=== PATIENT | female | born 1975 | race Caucasian/White ===

== ENCOUNTER 2022-11-09 14:55 | Outpatient (CLI) | payer MEDICAID, SELFPAY ==
--- NOTE | 2022-11-09 15:12 | MR_ITS ---
WS: [email or web address] MRI LUMBAR SPINE NONCONTRAST HISTORY: BACK PAIN, progressive pain. COMPARISON: 04/15/2013 TECHNIQUE: Sagittal and axial multisequence imaging is submitted. Normal lumbar alignment with no compression fractures or marrow edema. There is slight retrolisthesis of L5 by 2 mm. Similar to the prior study. Mild disc space narrowing and desiccation at L4-5 and L5-S1. Reactive fatty marrow changes along the adjacent endplates of L5 and S1. Conus terminates normally at L1-2 disc level. L1-L2: Normal. L2-L3: Mild facet disease. No stenosis or herniations. L3-L4: Mild annular disc bulge with mild ligamentum flavum hypertrophy. There is mild encroachment of the facets towards the thecal sac. No significant stenosis. L4-L5: Mild annular disc bulge with mild ligamentum flavum and facet arthritis. No high-grade stenosi s. No disc protrusion. L5-S1: Mild annular disc bulge with a moderate central to RIGHT paracentral disc protrusion. Disc pro trusion is slightly contacting but not displacing the nerve roots. Slightly greater encroachment upon the RIGHT S1 nerve root. Very mild bilateral foraminal stenosis. RIGHT paracentral disc protrusion w as also described in 2013 and has actually decreased slightly. Paravertebral soft tissues are normal. MR/MR lumbar spine wo con* [id number] IMPRESSION: 1. Moderate central to RIGHT paracentral disc protrusion at L5-S1. Mild contac t on the nerve roots, RIGHT S1 nerve root slightly greater than the LEFT. This disc protrusion was present on the study from 2012 and is slightly decreased. 2. No high-grade central or foraminal stenosis. 3. Moderate degenerative disc disease at L5-S1. 4. Mild bilateral foraminal stenosis at L5-S1.
== END 2022-11-09 14:56 | disposition home or self-care (01) ==
LOC: RAD 15:03
PROVIDERS: Visit Provider Neurological Surgery
DX: M51.27 Other intervertebral disc displacement, lumbosacral region (principal); M51.37 Other intervertebral disc degeneration, lumbosacral region; M48.07 Spinal stenosis, lumbosacral region
CPT/HCPCS: 72148

== ENCOUNTER 2022-11-26 06:00 | Outpatient (RCR) | payer MEDICAID, SELFPAY | END 2022-12-26 23:59 | disposition home or self-care (01) | LOC: APT 06:00 | PROVIDERS: Visit Provider Physician Assistant | DX: M54.2 Cervicalgia (principal); M54.9 Dorsalgia, unspecified; G89.29 Other chronic pain | CPT/HCPCS: 97110; 97163 ==

== ENCOUNTER → 2022-11-27 14:41 | Outpatient (BNVA) | payer MEDICAID, SELFPAY | PROVIDERS: Referring Provider Family Medicine; Visit Provider Physician Assistant | DX: M47.894 Other spondylosis, thoracic region (principal); M47.892 Other spondylosis, cervical region; M48.061 Spinal stenosis, lumbar region without neurogenic claudication | CPT/HCPCS: 72050; 72070; 72110 ==

== ENCOUNTER 2023-01-25 14:06 | Outpatient (CLI) | payer MEDICAID, SELFPAY ==
--- NOTE | 2023-01-25 14:15 | MM_ITS ---
WS: [email or web address] BILATERAL 3D TOMOSYNTHESIS DIGITAL SCREENING MAMMOGRAPHY WITH CAD CLINICAL INFORMATION: SCREENING HISTORY: Screening mammogram. No current complaints. COMPARISON: 2020 TECHNIQUE: Bilateral CC and MLO views. FINDINGS: The breasts are composed of heterogeneous fibroglandular density tissue, which can limit the detectio n of small underlying mass lesions. No suspicious mass, asymmetry, calcifications, or architectural d istortion. No evidence of malignancy. A few additional punctate calcifications. MM/[place] [id number] IMPRESSION: BI-RADS: 2-Benign FOLLOW UP: 1 Year Follow-up Recommend return to annual screening mammography.
== END 2023-01-25 14:07 | disposition home or self-care (01) ==
LOC: RAD 14:07
PROVIDERS: PCP Family Medicine; Visit Provider Family Medicine
DX: Z12.31 Encounter for screening mammogram for malignant neoplasm of breast (principal)
CPT/HCPCS: 77063; 77067

== ENCOUNTER 2023-02-18 14:36 | Outpatient (CLI) | payer MEDICAID, SELFPAY ==
--- NOTE | 2023-02-18 15:15 | MR_ITS ---
WS: [email or web address] MRI CERVICAL SPINE NONCONTRAST HISTORY: neck pain COMPARISON: Radiographs 11/27/2022 Technique: Multiplanar, multisequence noncontrast imaging of the cervical spine. Normal cervical alignment with no compression fracture or significant disc space narrowing. Signal within the cervical cord is normal. Visualized posterior fossa is unremarkable. Craniocervical junction, C1 and C2 relationship, odontoid process and soft tissues are normal. C2-C3: Normal. C3-C4: Normal. C4-C5: Normal. C5-C6: Mild disc bulging with a very tiny central disc protrusion. No stenosis. C6-C7: Mild annular disc bulging with a very shallow central disc protrusion. Bilateral facet joint a rthritis. Small disc osteophyte complex in the LEFT foramen causing moderate stenosis. Small osteophy te on the RIGHT with only minimal encroachment. C7-T1: Minimal hypertrophic osteophyte formation. No stenosis. Paraspinal soft tissue are normal. MR/MR cervical spin wo con* [id number] IMPRESSION: 1. No high-grade central or foraminal stenosis. 2. Moderate LEFT foraminal stenosis at C6-7 due to a disc osteophyte complex. 3. Very minimal RIGHT foraminal stenosis at C6-7.
== END 2023-02-18 14:37 | disposition home or self-care (01) ==
PROVIDERS: PCP Family Medicine; Visit Provider Orthopaedic Surgery
DX: M50.323 Other cervical disc degeneration at C6-C7 level (principal); M79.671 Pain in right foot; M25.78 Osteophyte, vertebrae; M79.672 Pain in left foot; M72.2 Plantar fascial fibromatosis
CPT/HCPCS: 72141; 73630

== ENCOUNTER 2023-04-17 14:53 | Outpatient (CLI) | payer MEDICAID, SELFPAY | END 2023-04-17 14:54 | disposition home or self-care (01) | LOC: SPT 14:53 | PROVIDERS: PCP Family Medicine; Visit Provider Podiatrist Foot & Ankle Surgery | DX: Z46.89 Encounter for fitting and adjustment of other specified devices (principal); M72.2 Plantar fascial fibromatosis | CPT/HCPCS: 97760; L4397 ==

== ENCOUNTER 2023-07-10 13:22 | Outpatient (CLI) | payer OTHER, SELFPAY ==
--- NOTE | 2023-07-10 13:31 | XR_ITS ---
WS: [email or web address] Exam: XR wrist RT 2V [id number] Date/Time of Exam: 07/10/2023 1:36 PM Reason For Exam: WEAK ANALYTICAL TECHNICIAN There are no fractures, soft tissue swelling, or unusual calcifications. The wrist shows normal bony alignment. There is no irregularity of the bony architecture. IMPRESSION: Negative RIGHT wrist.
== END 2023-07-10 13:23 | disposition home or self-care (01) ==
LOC: RAD 13:28
PROVIDERS: PCP Family Medicine; Visit Provider Dermatology
DX: Z02.71 Encounter for disability determination (principal); R53.1 Weakness
CPT/HCPCS: 73100

== ENCOUNTER → 2023-10-01 11:27 | Outpatient (BNVA) | payer MEDICAID, SELFPAY | PROVIDERS: PCP Family Medicine; Visit Provider Anesthesiology Pain Medicine | DX: M67.911 Unspecified disorder of synovium and tendon, right shoulder (principal) | CPT/HCPCS: 73030 ==

== ENCOUNTER → 2023-10-22 09:26 | Outpatient (BNVA) | payer MEDICAID, SELFPAY | PROVIDERS: PCP Family Medicine; Referring Provider Family Medicine; Visit Provider Psychiatry & Neurology Neurology | DX: R93.89 Abnormal findings on diagnostic imaging of other specified body structures (principal); R51.9 Headache, unspecified | CPT/HCPCS: 36415; 82542; 82607; 82746; 83735; 83921; 86592; 86780 ==

== ENCOUNTER 2023-11-22 11:25 | Outpatient (CLI) | payer MEDICAID, SELFPAY ==
--- NOTE | 2023-11-22 11:30 | MR_ITS ---
WS: [email or web address] MRA CAROTID WITHOUT AND WITH GADOLINIUM ENHANCEMENT TECHNIQUE: Axial 2-D TOF and gadolinium bolus images obtained with axial images and axial, sagittal, and coronal 2-D reformatted images. CLINICAL INFORMATION: R41.3 - Other amnesia COMPARISON: None. FINDINGS: RIGHT: RIGHT common carotid artery is patent. No significant RIGHT ICA stenosis. RIGHT ICA is patent to the skull base. LEFT: LEFT common carotid artery is patent. No significant LEFT ICA stenosis. LEFT ICA is patent to t he skull base. Codominant and patent vertebral arteries bilaterally. Normal branching aortic arch anatomy. Proximal subclavian arteries are patent. IMPRESSION: 1. No significant cervical ICA stenosis bilaterally. Both ICAs are patent to the skull base. 2. Codominant and patent vertebral arteries bilaterally. 3. No other acute findings.
--- NOTE | 2023-11-22 12:15 | MR_ITS ---
WS: [email or web address] MRA HEAD TECHNIQUE: Axial 3-D TOF images obtained with axial images and axial, sagittal, and coronal 2-D refor matted images. CLINICAL INFORMATION: R41.3 - Other amnesia COMPARISON: None. FINDINGS: Distal vertebral arteries are patent. Basilar artery is patent. Normal vascularity to the COMPLIANCE AIDE territo ry bilaterally. Both ICAs are patent at the skull base. Normal vascularity to the ALANIS and MCA territories bilaterally . No evidence of high-grade proximal stenosis or aneurysm. IMPRESSION: 1. No evidence of high-grade proximal stenosis or aneurysm. 2. Unremarkable intracranial MRA.
== END 2023-11-22 11:26 | disposition home or self-care (01) ==
LOC: RAD 11:26
PROVIDERS: PCP Family Medicine; Visit Provider Psychiatry & Neurology Neurology
DX: R41.3 Other amnesia (principal); R93.89 Abnormal findings on diagnostic imaging of other specified body structures; R26.89 Other abnormalities of gait and mobility; G44.009 Cluster headache syndrome, unspecified, not intractable; R29.818 Other symptoms and signs involving the nervous system; R93.0 Abnormal findings on diagnostic imaging of skull and head, not elsewhere classified
CPT/HCPCS: 70544; 70548; A9577

== ENCOUNTER 2023-12-11 13:30 | Outpatient (CLI) | payer MEDICAID, SELFPAY ==
--- NOTE | 2023-12-11 13:45 | MR_ITS ---
WS: [email or web address] MRI RIGHT SHOULDER HISTORY: M25.511 - Pain in right shoulder COMPARISON: None available. TECHNIQUE: Multiplanar sequences of the shoulder joint are submitted. Mild AC joint arthritis. 5 mm osteophyte from the distal undersurface of the acromion with mild subac romial impingement. Small amount of fluid in the subacromial and subdeltoid bursa. No os acromion. Bi ceps tendon normal. There is marked thickening and increased T2 signal in the distal supraspinatus tendon. Consistent wit h tendinopathy. There is a additional increased signal in the supraspinatus tendon over the humeral h ead which is suspicious for very small articular surface tear. There is no retraction of the tendon. No muscle atrophy or edema. Subscapularis tendon is normal. No labral tear. Normal position of the hu meral head. MR/MR shoulder RT wo con* [id number] IMPRESSION: 1. Marked thickening and increased signal in the distal supraspinatus tendon f rom tendinopathy. 2. There is an additional more proximal area of increased T2 signal along the articular surface of the supraspinatus tendon suspicious for a very small tear. 3. No muscle atrophy or edema. 4. Mild subacromial impingement. 5. Mild AC joint arthritis.
== END 2023-12-11 13:31 | disposition home or self-care (01) ==
LOC: RAD 13:30
PROVIDERS: PCP Family Medicine; Visit Provider Anesthesiology Pain Medicine
DX: M25.511 Pain in right shoulder (principal); M67.90 Unspecified disorder of synovium and tendon, unspecified site; M25.711 Osteophyte, right shoulder
CPT/HCPCS: 73221

== ENCOUNTER → 2024-01-09 12:11 | Outpatient (BNVA) | payer MEDICAID, SELFPAY | PROVIDERS: PCP Family Medicine; Visit Provider Internal Medicine Rheumatology | DX: Z79.899 Other long term (current) drug therapy (principal); H04.129 Dry eye syndrome of unspecified lacrimal gland | CPT/HCPCS: 83615; 85651; 86140; 86235; 86431; 86812 ==

== ENCOUNTER → 2024-02-05 15:04 | Outpatient (CLI) | payer MEDICAID, SELFPAY ==
--- NOTE | 2024-02-05 15:15 | US_ITS ---
WS: [email or web address] Right axillary ultrasound, 02/05/2024 Clinical Data: R59.9 - Enlarged lymph nodes, unspecified Comparison: None. Findings: The right axilla was imaged in multiple projections. Only normal subcutaneous tissue and muscle tissu e could be seen. There are no cysts or masses. No abnormal lymph nodes could be seen. US/US soft tissue/extremity [id number] Impression: Negative right axillary ultrasound.
== END | disposition home or self-care (01) ==
LOC: RAD 15:03
PROVIDERS: PCP Family Medicine; Visit Provider Internal Medicine Rheumatology
DX: R59.9 Enlarged lymph nodes, unspecified (principal)
CPT/HCPCS: 76882

== ENCOUNTER → 2024-03-05 13:20 | Outpatient (BNVA) | payer MEDICAID, SELFPAY | PROVIDERS: PCP Family Medicine; Visit Provider Orthopaedic Surgery | DX: M48.061 Spinal stenosis, lumbar region without neurogenic claudication (principal); M47.22 Other spondylosis with radiculopathy, cervical region | CPT/HCPCS: 72050; 72110 ==

== ENCOUNTER → 2024-05-05 16:36 | Outpatient (BNVA) | payer MEDICAID, SELFPAY | PROVIDERS: PCP Family Medicine; Visit Provider Psychiatry & Neurology Neurology | DX: R51.9 Headache, unspecified (principal); M25.511 Pain in right shoulder; M54.6 Pain in thoracic spine | CPT/HCPCS: 36415; 82542; 85651; 86038; 86140; 86431 ==

== ENCOUNTER → 2024-06-03 13:25 | Outpatient (BNVA) | payer MEDICAID, SELFPAY | PROVIDERS: PCP Family Medicine; Visit Provider Specialist | DX: G56.03 Carpal tunnel syndrome, bilateral upper limbs (principal); M77.8 Other enthesopathies, not elsewhere classified | CPT/HCPCS: 73130 ==

== ENCOUNTER → 2024-06-09 15:29 | Outpatient (BNVA) | payer MEDICAID, SELFPAY | PROVIDERS: PCP Family Medicine; Visit Provider Orthopaedic Surgery | DX: M47.22 Other spondylosis with radiculopathy, cervical region (principal); M54.2 Cervicalgia | CPT/HCPCS: 72050 ==

== ENCOUNTER → 2024-07-16 15:02 | Outpatient (BNVA) | payer MEDICAID, SELFPAY | PROVIDERS: PCP Family Medicine; Visit Provider Orthopaedic Surgery | DX: M54.2 Cervicalgia (principal); M47.22 Other spondylosis with radiculopathy, cervical region | CPT/HCPCS: 72050 ==

== ENCOUNTER 2024-07-28 11:16 | Outpatient (CLI) | payer MEDICAID, SELFPAY ==
--- NOTE | 2024-07-28 11:00 | MR_ITS ---
WS: [email or web address] MRI CERVICAL SPINE NONCONTRAST TECHNIQUE: Sagittal T1, T2 and STIR imaging. Axial T2, gradient, and fiesta imaging. CLINICAL INFORMATION: neck pain COMPARISON: MRI 02/18/2023 FINDINGS: Straightening of the normal cervical lordosis. Cord signal is normal. Mild disc bulging worse at C6-7 . C2-C3: Mild facet arthropathy. Spinal canal and foramen are patent. C3-C4: Mild facet arthropathy. Mild RIGHT foraminal narrowing. C4-C5: Minimal disc osteophyte ridging. Mild facet arthropathy. Mild RIGHT and severe LEFT foraminal narrowing. C5-C6: Disc osteophyte ridging. Mild facet arthropathy. Spinal canal and foramen are patent. C6-C7: Disc osteophyte complex with moderate LEFT bony foraminal narrowing. This is similar to previo us. Mild RIGHT foraminal narrowing. Mild facet arthropathy. Spinal canal is patent. C7-T1: Spinal canal and foramen are patent. Visualized brain stem structures: Normal. Prevertebral soft tissues: Normal. MR/MR cervical spin wo con* [id number] IMPRESSION: 1. Disc osteophyte complex with moderate LEFT bony foraminal narrowing C6-7 si milar to previous 2. Mild RIGHT C6-7 bony foraminal narrowing. 3. Cord signal is normal.
== END 2024-07-28 11:17 | disposition home or self-care (01) ==
LOC: RAD 11:17
PROVIDERS: PCP Family Medicine; Visit Provider Orthopaedic Surgery
DX: M99.61 Osseous and subluxation stenosis of intervertebral foramina of cervical region (principal); M25.78 Osteophyte, vertebrae
CPT/HCPCS: 72141

== ENCOUNTER 2024-08-11 16:22 | Outpatient (CLI) | payer MEDICAID, SELFPAY ==
--- NOTE | 2024-08-11 16:30 | XR_ITS ---
WS: [email or web address] XR elbow LT min 3V* [id number] REASON FOR EXAM: elbow pain FINDINGS: No joint effusion. No acute fracture identified. The joint spaces of the elbow are intact and well preserved. XR/XR elbow LT min 3V* [id number] IMPRESSION: No significant abnormality.
== END 2024-08-11 16:23 | disposition home or self-care (01) ==
LOC: RAD 16:26
PROVIDERS: PCP Family Medicine; Visit Provider Nurse Practitioner
DX: M25.522 Pain in left elbow (principal)
CPT/HCPCS: 73080

== ENCOUNTER → 2024-08-17 16:29 | Outpatient (BNVA) | payer MEDICAID, SELFPAY | PROVIDERS: PCP Family Medicine; Visit Provider Anesthesiology Pain Medicine | DX: M47.894 Other spondylosis, thoracic region (principal) | CPT/HCPCS: 72072 ==

== ENCOUNTER → 2024-08-25 16:05 | Outpatient (BNVA) | payer MEDICAID, SELFPAY | PROVIDERS: PCP Family Medicine; Visit Provider Psychiatry & Neurology Neurology | DX: R93.0 Abnormal findings on diagnostic imaging of skull and head, not elsewhere classified (principal); R41.3 Other amnesia; G93.40 Encephalopathy, unspecified; R51.9 Headache, unspecified; R29.818 Other symptoms and signs involving the nervous system; R41.0 Disorientation, unspecified | CPT/HCPCS: 36415; 83520 ==

== ENCOUNTER 2024-09-01 13:50 | Outpatient (CLI) | payer MEDICAID, SELFPAY ==
--- NOTE | 2024-09-01 13:45 | MR_ITS ---
WS: [email or web address] MRI HEAD WITH CONTRAST TECHNIQUE: Sagittal T1, T2 axial, T2 axial FLAIR, axial susceptibility weighted imaging, axial diffusion weighted images, and coronal T2 images were obtained. Pre and post-T1 axial and post T1 coronal images. ADC and FSPGR images. CLINICAL INFORMATION: R93.0 - Abnormal findings on diagnostic imaging of skull ... COMPARISON: MRI 07/24/2023 FINDINGS: Mild patchy supratentorial white matter changes mainly in the frontal and parietal lobes near the vertex with a few foci in the subcortical white matter unchanged from the prior outside MRI. Findings are nonspecific in a patient this age but can be seen with small vessel changes and migraine headaches. No significant progression. Normal posterior fossa. Normal vascular flow voids at the skull base. No extra- axial fluid collections. No evidence of mass or mass effect. Paranasal sinuses and mastoid air cells are well aerated. Normal posterior nasopharynx. No restricted diffusion to suggest acute ischemia. No hemosiderin on suscep tibility-weighted images. Normal optic chiasm and pituitary infundibulum. Temporal lobes and hippocampal formations are normal in appearance. No abnormal gadolinium enhancement. Normal visualized dural venous sinuses. No other suspicious findings. MR/MR head wo/w con [id number] IMPRESSION: 1. Stable mild patchy supratentorial white matter changes nonspecific in a pat ient of this age but can be seen with migraine headaches and small vessel chua es. 2. No other suspicious intracranial signal abnormalities. 3. No abnormal gadolinium enhancement. 4. No other acute findings.
[2024-09-01] MEDS: gadobenate dimeglumine 20 mL vial 17 ML IV (14:30)
== END 2024-09-01 13:51 | disposition home or self-care (01) ==
LOC: RAD 13:50
PROVIDERS: PCP Family Medicine; Visit Provider Psychiatry & Neurology Neurology
DX: R93.0 Abnormal findings on diagnostic imaging of skull and head, not elsewhere classified (principal)
CPT/HCPCS: 70553

== ENCOUNTER 2024-09-29 20:00 | Outpatient (CLI) | payer MEDICAID, SELFPAY | END 2024-09-29 20:01 | disposition home or self-care (01) | LOC: SLEEP 09-30 03:06 | PROVIDERS: PCP Family Medicine; Visit Provider Psychiatry & Neurology Neurology | DX: G47.33 Obstructive sleep apnea (adult) (pediatric) (principal) | CPT/HCPCS: 95810 ==

== ENCOUNTER 2024-11-24 15:44 | Outpatient (CLI) | payer MEDICAID, SELFPAY ==
--- NOTE | 2024-11-24 16:00 | CT_ITS ---
WS: [email or web address] CT LEFT ELBOW, NONCONTRAST HISTORY: palpable mobile foreign body in left elbow Technique: All CT scans at [facility] use at least one of these dose optimization techniques: automated exposure control; mA and/or kV adjustment per patient size (includes targeted exams where dose is matched to clinical indication); or iterative reconstruction. DLP: 266.56 mGy.cm COMPARISON: Radiograph 08/11/2024 Normal alignment at the elbow joint. No acute fracture. Radial head is normal. Coronoid process and olecranon are normal. No supracondylar fracture. No significant joint effusion. Area of increased soft tissue thickening along the dorsal surface of the elbow. Soft tissue thickening measures 4.5 mm. There is a single, tiny, less than 2 mm, area of increased attenuation which is suspicious for tiny foreign body. This is best seen on image 20 of series 24 and image 51 of series 14. No additional similar densities. CT/CT elbow LT wo con* [id number] IMPRESSION: 1. Very tiny high density foreign body in the superficial soft tissues of the posterior elbow. This could be consistent with a small focus of glass. 2. Soft tissue thickening and edema along the dorsal elbow.
== END 2024-11-24 15:45 | disposition home or self-care (01) ==
LOC: RAD 15:48
PROVIDERS: PCP Family Medicine; Visit Provider Student in an Organized Health Care Education/Training Program
DX: S50.352A Superficial foreign body of left elbow, initial encounter (principal); M25.522 Pain in left elbow; M79.89 Other specified soft tissue disorders; X58.XXXA Exposure to other specified factors, initial encounter
CPT/HCPCS: 73200

== ENCOUNTER → 2024-12-01 13:44 | Outpatient (BNVA) | payer MEDICAID, SELFPAY | PROVIDERS: PCP Family Medicine; Visit Provider Podiatrist Foot & Ankle Surgery | DX: M79.671 Pain in right foot (principal); M79.672 Pain in left foot; M72.2 Plantar fascial fibromatosis | CPT/HCPCS: 73630 ==

== ENCOUNTER 2024-12-03 14:39 | Outpatient (CLI) | payer MEDICAID, SELFPAY ==
--- NOTE | 2024-12-03 15:15 | MR_ITS ---
WS: [email or web address] MRI LEFT ANKLE WITHOUT CONTRAST. COMPARISON: 12/01/2024 Multiplanar, multisequence imaging is performed without contrast. Normal signal in the plantar fascia. There is no edema at the calcaneal insertion site. No thickening of the plantar fascia or fibrosis identified. No osteophytosis. Achilles tendon is normal. No signal abnormality within the calcaneus. No widening of the syndesmosis. There is a small subchondral cyst in the distal fibula. No osteochondral lesions along the talar dome. Peroneus brevis and longus are normal. Flexor hallucis longus and the flexor digitorum longus and the posterior tibialis tendon are normal. Extensor tendons are normal. Anterior inferior and the talofibular ligaments are normal. Normal calcaneofibular ligament. Normal deltoid ligament. Sustentaculum tracey is enlarged but no coalition is identified. MR/MR ankle LT wo con* [id number] IMPRESSION: 1. No MRI evidence for plantar fasciitis. 2. Normal Achilles tendon. 3. Normal ATFL. 4. No osteochondral lesions or intra-articular bodies. 5. Subchondral cyst distal fibula.
== END 2024-12-03 14:40 | disposition home or self-care (01) ==
LOC: RAD 14:41
PROVIDERS: PCP Family Medicine; Visit Provider Podiatrist Foot & Ankle Surgery
DX: M79.671 Pain in right foot (principal); M79.672 Pain in left foot; M72.2 Plantar fascial fibromatosis; M85.672 Other cyst of bone, left ankle and foot; R93.6 Abnormal findings on diagnostic imaging of limbs
CPT/HCPCS: 73721

== ENCOUNTER 2025-01-21 05:55 | Day surgery (SDC) | payer MEDICAID, SELFPAY ==
[2025-01-21] VITALS (7 sets, daily range): BP systolic 106–166; BP diastolic 77–89; PULSE 68–88; RESP 16–18; TEMP 36.1–36.5; O2SAT 97–100; BMI 27.4
--- NOTE | 2025-01-21 06:35 | ANES.PREANE2 ---
Pre-Anesthetic Assessment Height/Weight: Height 1.65 m Weight 74.843 kg Temp Pulse Resp BP Pulse Ox O2 Del Method 97.0 F L 82 17 155/83 100 Room Air 01/21/25 06:11 01/21/25 06:11 01/21/25 06:11 01/21/25 06:11 01/21/25 06:11 01/21/25 06:13 Operation Date: 01/21/25 07:00 Proposed Procedures p elbow foreign body removal(Left) - Trell Neha, DO Familial anesthetic complications: None Was Beta Ariana taken within 24 hours: N/A Was Clonidine taken within 24 hours: N/A Last intake: Intake Last Liquid Date 01/20/25 Last Liquid Time 22:00 Last Solid Date 01/20/25 Last Solid Time 20:00 Social No alcohol and No tobacco Exam alert, oriented x 3, clear to auscultation bilaterally and regular rate & rhythm Airway Mallampati: Class I Dentition: full Pulmonary Sleep Apnea (central and obstructive) GI Gastroesophageal Reflux Disease Anesthetic Plan ASA status: 3 Anesthesia: MAC Other: Informed of possibillity of LMA/ETT if difficulty with breathing due to central sleep apnea/WILVER Risk of > 500 ml blood loss (7ml/kg in children): No Medications/Allergies Home Medications ?Medication ?Instructions ?Recorded ?Confirmed ?Last Taken ?Type alprazolam 1 mg tablet 1 mg PO DAILY 11/07/22 01/20/25 01/19/25 History methocarbamol 750 mg tablet 750 mg PO TID 11/07/22 01/20/25 01/19/25 History omeprazole 20 mg capsule,delayed 20 mg PO DAILY 11/07/22 01/20/25 01/19/25 History release Figure 8 Brace #1 ea 01/31/23 12/22/24 Unknown Rx Night Splint #1 ea 04/02/23 12/22/24 Unknown Rx TLSO Brace #1 ea 04/08/23 12/22/24 Unknown Rx diclofenac sodium 1 % topical gel 2 g topical BID 04/07/24 01/20/25 01/19/25 History (Arthritis Pain (diclofenac)) cholecalciferol (vitamin D3) 1,250 50,000 unit PO ONCE #30 tabs 07/02/24 01/20/25 01/05/25 Rx mcg (50,000 unit) tablet ibuprofen 600 mg tablet 600 mg PO TID PRN pain #60 tabs 08/11/24 01/20/25 Unknown Rx oxycodone-acetaminophen 10 mg-325 1 tab PO QID Severe pain of entire 08/25/24 01/20/25 01/19/25 History mg tablet spine Allergies Allergy/AdvReac Type Severity Reaction Status Date / Time bupropion Allergy Unknown Verified 01/21/25 06:06 codeine Allergy Unknown Verified 01/21/25 06:06 [facility] Anesthesia Medical History Confusion Psychiatric care Night sweats Polyarthralgia No pertinent past medical history Surgical History No pertinent past surgical history Family History Other Cancer Hyperlipidemia Hypertension Lupus Osteoporosis Stroke Social History Smoking and tobacco/nicotine status: never used tobacco/nicotine Alcohol intake: never
[2025-01-21] MEDS: ketorolac 30 mg/mL INJ IVP (06:38)
[2025-01-21] MEDS: sodium chloride 0.9% 1,000 ML 30 ML IV (06:38)
[2025-01-21] MEDS: scopolamine 1 mg PATCH 1 PATCH TRANSDERMA (06:39)
[2025-01-21] MEDS: acetaminophen 1,000 MG/100 ML PIGGYBACK 400 MG IV (06:41)
[2025-01-21 06:54] LABS: OR HCG Qualitative Urine Negative (Negative)
--- NOTE | 2025-01-21 06:56 | W.PM.OPSFHP ---
Same Day Surgery H&P Indication for Procedure/HPI DATE OF PROCEDURE: January 21, 2025 CHIEF COMPLAINT/INDICATIONFOR SURGICAL PROCEDURE: Left elbow foreign body PREOP DIAGNOSIS: Left elbow foreign body PLANNED PROCEDURE: Operation Date: 01/21/25 07:00 Proposed Procedures p elbow foreign body removal(Left) - rTell Solomon DO Medications/Allergies* Home Medications ?Medication ?Instructions ?Recorded ?Confirmed ?Type alprazolam 1 mg tablet 1 mg PO DAILY 11/07/22 01/20/25 History methocarbamol 750 mg tablet 750 mg PO TID 11/07/22 01/20/25 History omeprazole 20 mg capsule,delayed 20 mg PO DAILY 11/07/22 01/20/25 History release diclofenac sodium 1 % topical gel 2 g topical BID 04/07/24 01/20/25 History (Arthritis Pain (diclofenac)) oxycodone-acetaminophen 10 mg-325 1 tab PO QID Severe pain of entire 08/25/24 01/20/25 History mg tablet spine Allergies/Adverse Reactions Allergy/AdvReac Type Severity Reaction Status Date / Time bupropion Allergy Unknown Verified 01/21/25 06:06 codeine Allergy Unknown Verified 01/21/25 06:06 Current Medications: Generic Name Dose Route Start Last Admin Trade Name Freq PRN Reason Stop Dose Admin Sodium Chloride 1,000 mls @ 30 mls/hr 01/21/25 06:00 01/21/25 06:38 Sodium Chloride 0.9% IV 01/22/25 05:59 30 mls/hr .Q24H MIA Administration Pertinent History/Comorbid Conditions* Medical History (Updated 08/11/24 @ 16:11 by Jagdish Harper DO) Confusion Psychiatric care Night sweats Polyarthralgia No pertinent past medical history Surgical History (Updated 11/07/22 @ 16:51 by Lanie Anderson DO) No pertinent past surgical history Family History (Updated 01/09/24 @ 11:34 by Diana Pickering LPN) Lupus Osteoporosis Hyperlipidemia Cancer Hypertension Stroke Social History Smoking and tobacco/nicotine status: never used tobacco/nicotine Alcohol intake: never Pertinent Exam Findings alert, oriented x 3, operative site marked and procedure specific exam findings Please refer to detailed orthopedic examination on 12/08/2024 Left Elbow Exam: -Palpable mobile firm foreign body with previous laceration that is healed over olecranon bursa -Lateral epicondyle tenderness to palpation -Pain with resisted wrist extension -Negative Tinel's over cubital tunnel Recommendations Risks and benefits of procedure reviewed and Patient/family agree to proceed Surgery/Procedure today Other Plans: Plan to proceed to the OR today for left elbow foreign body removal. Patient understands ins and outs procedure the risk benefits complications alternatives to surgery through shared decision-making patient elects proceed with surgical intervention. All questions answered at this time. Coding Level of Care Code Acute Code for [facility] Luis M
[2025-01-21] MEDS: ceFAZolin 2,000 MG in sodium chloride 0.9% (plus) 50 ML 100 MG IV (07:00)
--- NOTE | 2025-01-21 07:48 | P.BOP_ITS ---
Date of Procedure: [] Surgeon: Trell Solomon DO Circuit Court Magistrate(s): None Procedure(s) performed: Left elbow foreign body removal Left elbow olecranon bursal excision Findings of the procedure(s): Patient was found to have thickened and inflamed olecranon bursa that was scarred around patient's appear to be foreign body this was all excised to its entirety as these were the 2 areas where patient had pain and firm structure 1 felt to be more of the thickened bursal tissue the other appeared to be the foreign body scar directly over the olecranon process. This excised all of this to the its entirety and had smooth contour and no foreign body or prominence was appreciated thorough irrigation performed patient tolerated well without issues or complications taken recovery stable condition. Estimated blood loss: 2 mL Specimen(s) removed: Foreign body in olecranon bursa excised sent for specimen Post-operative diagnosis: Left elbow foreign body and olecranon bursitis
--- NOTE | 2025-01-21 07:50 | PM.OP ---
Operative Report Date of procedure: January 21, 2025 Pre-op diagnosis: Left elbow foreign body Post-op diagnosis: Same, and left elbow olecranon bursitis Post-op findings: See operative report narrative Procedure done: Left elbow foreign body removal Left elbow olecranon bursal excision Specimens removed/disposition: Olecranon bursa excised and sent for specimen Surgeon: Trell Solomon DO Certified Prosthetist/Orthotist: None Anesthesia: General Estimated blood loss: 2 mL 19 mL IV fluids: 700 mL Urine output: None Complications: None Findings: See operative report narrative Condition: stable Disposition: same day Brief History: Patient is a pleasant [id number]-old female where she had a fall landing on her left elbow she concerned she had foreign bodies left there she can feel this on the olecranon process. We CT scan there was a small foreign body as well as some thickening of the olecranon bursa. At this point time we talked about treatment options in detail as far as nonoperative and operative invention at this point time she is try to live with this and this is still bothering her and it hurts when she leans on her elbow talked about nonoperative intervention through shared decision making elected proceed with surgical intervention for left elbow foreign body removal. She understands the incidence procedure risk benefits complication alternatives surgery through shared decision making patient like to proceed with surgical invention. All questions answered at this time. Procedure: Patient seen eval in the preoperative holding area. Consent was reviewed and signed with patient. Correct extremities and subsequently marked. Patient then subsequently was seen by by anesthesia was cleared for surgery patient was taken back to the operative suite patient was kept on hospital [place] armboard applied to the left upper extremity. Patient underwent anesthesia per the anesthesia part was properly anesthetized all bony prominences well-padded patient was secured to the bed. The left upper extremity was then prepped and draped in standard orthopedic fashion. Final timeout performed. Patient received appropriate preoperative antibiotics. At this point in time once again I did premarked out where she felt her foreign body and circled this subsequently made a small longitudinal incision directly over the site. At this point in time it was noted patient had a small gush of clear bursal type fluid consistent with olecranon bursitis with thickened bursa at this point in time I excised the olecranon bursa as well as its thickened prominence over the posterior and medial aspect of the process. Care was made to protect all neurovascular structures. At this point I excised this thickened bursa and sent this for specimen as this was where she was rolling her finger over and felt pain as well as then there was some small thickened scar tissue built-up which felt firm and was excised in the location where the foreign body there is no visible metallic type structure in the elbow but at this point in time we excised all of the bursa as well as scar tissue over where patient had this and this felt nice and smooth with no further foreign body and scar tissue prominence. This point time tourniquet deflated hemostasis was satisfactory thoroughly irrigation performed this was then closed in layered fashion of 3-0 Vicryl and nylon for skin. Patient tolerated well without issues or complications dressed with Xeroform 4 x 4's ABD Curlex soft roll and an Teo wrap. Waken from anesthesia taken to PACU stable condition Disposition: Patient taken recovery in stable condition recovering well received appropriate discharge structure as well as pain medication will follow-up in 2 weeks. All questions answered.
--- NOTE | 2025-01-21 08:00 | PM.PACU ---
PACU note Narrative: Patient is a 49-year-old female that just underwent a left elbow foreign body removal. Patient transferred to PACU in stable condition. Pain is well controlled. Dressing on elbow is dry and in place. Patient's fingers are warm and well-perfused. Patient can wiggle fingers. normal cap refill under 2 seconds. Patient has normal elbow range of motion. Sensation to hand intact. Exam: awake Disposition: discharged
--- NOTE | 2025-01-21 08:06 | SUR.PHASEII ---
Patient arrived from PACU VS wnl, pain minimal, awake and sitting up in gurney drinking and eating. Family at bedside.
--- NOTE | 2025-01-21 08:35 | ANE.PACU2 ---
Inpatient post-anesthesia follow up: Airway intact: Yes Vital signs: Temperature 97.1 F Pulse Rate 68 Respiratory Rate 16 Blood Pressure 166/86 Pulse Oximetry 100 Oxygen Delivery Me thod Room Air Oxygen Flow Rate Fraction of Inspir ed Oxygen Hydration adequate: Yes Nausea and vomiting: No Pain level: 1 Mental status: Baseline
== END 2025-01-21 08:37 | disposition home or self-care (01) ==
PROVIDERS: Anesthesiology; PCP Family Medicine; Visit Provider Student in an Organized Health Care Education/Training Program
PROC: (CPT 24105; principal; 2025-01-21 07:00)
DX: S50.352A Superficial foreign body of left elbow, initial encounter (principal); X58.XXXA Exposure to other specified factors, initial encounter; M70.22 Olecranon bursitis, left elbow; K21.9 Gastro-esophageal reflux disease without esophagitis; G47.30 Sleep apnea, unspecified
CPT/HCPCS: 24105; 81025; 88300; J0131; J0690; J1885; J2250; J2704; J3010; J7030; J9999

== ENCOUNTER → 2025-02-03 13:30 | Outpatient (BNVA) | payer MEDICAID, SELFPAY | PROVIDERS: PCP Family Medicine; Visit Provider Student in an Organized Health Care Education/Training Program | DX: G56.03 Carpal tunnel syndrome, bilateral upper limbs (principal) | CPT/HCPCS: 73130 ==

== ENCOUNTER 2025-03-01 20:00 | Outpatient (CLI) | payer MEDICAID, SELFPAY | END 2025-03-01 20:01 | disposition home or self-care (01) | LOC: SLEEP 03-02 00:23 | PROVIDERS: PCP Family Medicine; Visit Provider Internal Medicine Pulmonary Disease | DX: G47.33 Obstructive sleep apnea (adult) (pediatric) (principal) | CPT/HCPCS: 95811 ==